=== PATIENT | female | born 1950 | race Caucasian/White ===

== ENCOUNTER 2018-12-18 10:17 | Inpatient (IN) | payer MEDICARE, BC ==
[~2018-12-18] VITALS: Ht 160 cm; Wt 47.2 kg
--- NOTE | 2018-12-18 10:24 | NUR ---
DR Prescott at the bedside for MSE.
--- NOTE | 2018-12-18 10:25 | NUR ---
Pt is unable to provide/recall complete information about her home medications at this time.
[2018-12-18] MEDS ORDERED: EFFEXOR (10:26)
[2018-12-18] MEDS ORDERED: XANAX (10:26)
[2018-12-18] MEDS ORDERED: IV NORMAL SALINE 500 ML BAG IV ONE ×2 (10:45→11:30)
[2018-12-18 10:56] LABS: BASOPHILS % (AUTO) 0.1 % (0.0-2.0); HEMATOCRIT 32.1 % (31.2-41.9); HEMOGLOBIN 10.5 g/dL (10.9-14.3); LYMPHOCYTES # (AUTO) 0.2 K/uL (20.0-40.0); LYMPHOCYTES % (AUTO) 3.1 % (20.5-51.5); MEAN CORPUSCULAR HGB CONC 33 g/dL (32.3-35.6); MEAN CORPUSCULAR VOLUME 85.3 fL (75.5-95.3); MONOCYTES % (AUTO) 0.4 % (0.0-11.0); NEUTROPHILS # (AUTO) 6.2 K/uL (1.8-8.9); NEUTROPHILS % (AUTO) 96.4 % (38.5-71.5); RED BLOOD CELL COUNT(AUTO) 3.76 MIL/uL (3.63-4.92); WHITE BLOOD COUNT (AUTO) 6.4 K/uL (3.8-11.8)
[2018-12-18 10:58] LABS: PLATELET COUNT (AUTO) 36 K/uL (179-408)
[2018-12-18 11:01] LABS: CREATININE 1.8 mg/dL (0.6-1.3); POTASSIUM 3.8 mmol/L (3.5-5.1)
--- NOTE | 2018-12-18 11:10 | NUR ---
Patient is resting comfortably in bed with eyes closed, family at the bedside.
[2018-12-18 11:13] LABS: BILIRUBIN,DIRECT 2.5 mg/dL (0.0-0.2); BILIRUBIN,TOTAL 3.2 mg/dL (0.2-1.0); TOTAL PROTEIN, SERUM 5.8 g/dL (6.4-8.2)
[2018-12-18 11:25] LABS: BAND % (MANUAL) 2 % (0-10); LYMPHOCYTES % (MANUAL) 3 % (20-40); MONOCYTES % (MANUAL) 1 % (2-10); NEUTROPHILS % (MANUAL) 94 % (42-75)
[2018-12-18 12:45] VITALS: BP 146/88
--- NOTE | 2018-12-18 12:45 | NUR ---
PATIENT ARRIVED TO UNIT FROM ER. PATIENT ON FITTER HELPER ST HR 120'S. O2SAT 95% ON 3L NC. PATIENT COMPLAINING OF SOB AND CHEST TIGHTNESS UPON ARRIVAL. PATIENT AOX4, COMPLAINS OF MOUTH PAIN DUE TO MULTIPLE MOUTH SORES IN MOUTH. PATIENT IS A HARD STICK FOR BLOOD AND IV AND THE PATIENT IS REQUESTING IF A PICC LINE CAN BE PLACED. NO ADMISSION ORDERS AT THIS TIME. WILL CONTACT CHONG JACKSON FOR FURTHER ORDERS.
[2018-12-18] MEDS ORDERED: NYST5ORA PO (13:27)
[2018-12-18 14:41] LABS: *BILIRUBIN,URIN NEGATIVE (NEGATIVE); *BLOOD, URINE 1+ (NEGATIVE); *COLOR,URINE YELLOW (YELLOW); *KETONES,URINE NEGATIVE (NEGATIVE); LEUKOCYTE ESTERASE ,URINE TRACE (NEGATIVE); NITRITE, URINE NEGATIVE (NEGATIVE); PH,URINE 6.5 (5.0-8.0); UGLUCOSE NEGATIVE (NEGATIVE)
[2018-12-18] MEDS ORDERED: ALBUTEROL SULFATE 2.5 MG/3 ML NEBU NEB PRN (15:15)
[2018-12-18 15:40] LABS: *CLARITY,URINE SLIGHTLY HAZY (CLEAR)
[2018-12-18 15:41] LABS: BACTERIA,URINE FEW /HPF (NONE SEEN)
[2018-12-18 15:42] LABS: COARSE GRANULAR CASTS,URINE 0-3 /LPF; MUCUS,URINE FEW /LPF (0-FEW); SQUAMOUS EPITHELIAL CELL,UR MODERATE /HPF (NONE SEEN)
[2018-12-18 15:58] VITALS: BP 126/81
[2018-12-18] MEDS: MORPHINE SULFATE 2 MG/1 ML DISP.SYRIN IV PRN (16:00)
[2018-12-18] MEDS ORDERED: ACETAMINOPHEN 650 MG SUPP.RECT RC PRN (16:15)
[2018-12-18] MEDS ORDERED: LEVALBUTEROL HCL NEB 0.63 MG/3 ML NEBU NEB PRN (17:30)
[2018-12-18] MEDS: PROTEIN SUPPLEMENT (PROSTAT) 30 ML LIQUID PO SCH ×2 (17:45→21:28)
--- NOTE | 2018-12-18 17:54 | NUR ---
PHARMACY CLINICAL NOTES: (VANCOMYCIN DOSING) S: 68 YO female with history of lung cancer. She claims she has been very short of breath has dyspnea at rest and has been unable to eat for the last 2 days. MD ordered Zosyn and Vancomycin per pharmacy O: BUN/SCR 44/1.8, WBC 6.4; TEMP 98.2, CRCL 22.18, DOSING WT 104 LBS; t1/2 ~30 hrs A/P: Will dose Vancomycin as 1 gm IVPB q48h ; estimated peak of 45 and trough of 15.Plan to order the Vancomycin level prior to 3rd dose(not ordered yet). Will continue to monitor the renal fxn and adjust the dose if necessary.
[2018-12-18] MEDS ORDERED: PIPERACILLIN/TAZOBACTAM/D5W 2.25 G in PREMIXED 1 EACH IV SCH (18:00)
[2018-12-18] MEDS: DRONABINOL 2.5 MG CAPSULE PO SCH (18:06)
[2018-12-18] MEDS: METOPROLOL TARTRATE 25 MG TABLET PO SCH ×2 (18:06→20:33)
[2018-12-18] MEDS: POTASSIUM CHLORIDE 20 MEQ in IV D5/ 0.9% NACL 1,000 ML IV PRN (18:49)
[2018-12-18] MEDS: NYSTATIN SUSPENSION 5 ML LIQUID UDC PO SCH ×2 (18:50→20:34)
[2018-12-18] MEDS ORDERED: VANCOMYCIN IV 200 ML IV SCH (19:00)
--- NOTE | 2018-12-18 19:13 | NUR ---
ADMISSION ORDERS HAVE BEEN RECEIVED. ADMISSION ASSESMENT COMPLETED WITH PATIENT. PATIENT IS COMPLIANT WITH ALL CARE. PAIN MEDICATION GIVEN ORDERED. PICC LINE WAS PLACED TO RIGHT UPPER ARM ORDERED. WILL GIVE REPORT TO ONCOMING NURSE
--- NOTE | 2018-12-18 19:20 | NUR ---
RECEIVED PT AWAKE, ALERT AND ORIENTEDX3. PT SHOWS NO SIGNS OF ACUTE DISTRESS. PT IV INTACT. PT ON 3L NASAL CANNULA. SAFETY AND COMFORT PROVIDED. WILL CONTINUE TO MONITOR,
[2018-12-18 19:31] VITALS: BP 125/77
[2018-12-18] MEDS: SUCRALFATE 1 G TABLET PO SCH (20:34)
[2018-12-18] MEDS ORDERED: LEVOFLOXACIN 500 MG TABLET PO SCH (21:00)
[2018-12-18] MEDS: LORAZEPAM 2 MG/1 ML VIAL IV PRN (23:06)
[2018-12-18] MEDS ORDERED: MEROPENEM 500 MG VIAL IV ONE (23:07)
[2018-12-18] MEDS: MEROPENEM 0.5 G in IV NORMAL SALINE 50 ML IV SCH (23:14)
[2018-12-18 23:49] VITALS: BP 137/75
[2018-12-19] VITALS (7 sets, daily range): BP systolic 104–145; BP diastolic 45–84
[2018-12-19] MEDS: DRONABINOL 2.5 MG CAPSULE PO SCH ×2 (05:55→16:50)
[2018-12-19] MEDS: PROTEIN SUPPLEMENT (PROSTAT) 30 ML LIQUID PO SCH ×3 (05:56→21:04)
[2018-12-19 05:59] LABS: EOSINOPHILS % (AUTO) 0.1 % (0.0-7.0); HEMATOCRIT 25.3 % (31.2-41.9); HEMOGLOBIN 8.4 g/dL (10.9-14.3); LYMPHOCYTES # (AUTO) 0.2 K/uL (20.0-40.0); LYMPHOCYTES % (AUTO) 4.9 % (20.5-51.5); MEAN CORPUSCULAR HEMOGLOBIN 28.1 uug (24.7-32.8); MEAN CORPUSCULAR HGB CONC 33 g/dL (32.3-35.6); MEAN CORPUSCULAR VOLUME 84.5 fL (75.5-95.3); MONOCYTES % (AUTO) 0.6 % (0.0-11.0); NEUTROPHILS # (AUTO) 4.2 K/uL (1.8-8.9); NEUTROPHILS % (AUTO) 94.4 % (38.5-71.5); RED BLOOD CELL COUNT(AUTO) 2.99 MIL/uL (3.63-4.92); WHITE BLOOD COUNT (AUTO) 4.4 K/uL (3.8-11.8)
[2018-12-19 06:19] LABS: BILIRUBIN,TOTAL 3.8 mg/dL (0.2-1.0); CREATININE 1.6 mg/dL (0.6-1.3); MAGNESIUM 1.5 mg/dL (1.8-2.4); PHOSPHOROUS 7.4 mg/dL (2.5-4.9); POTASSIUM 3.7 mmol/L (3.5-5.1); THYROID STIMULATING HORMONE 3.394 mIU/mL (0.358-3.740); TOTAL PROTEIN, SERUM 5.1 g/dL (6.4-8.2)
[2018-12-19 06:27] LABS: PLATELET COUNT (AUTO) 14 K/uL (179-408)
[2018-12-19] MEDS: SUCRALFATE 1 G TABLET PO SCH ×4 (06:52→20:45)
--- NOTE | 2018-12-19 07:00 | NUR ---
AT 0625 RECEIVED A CALL FROM LAB REGARDING CRITICAL LAB OF PT. NOTIFY DR BUS ASSISTANT REGARDING PLATELET COUNT OF 14 AND ALBUMIN AT 1.1 AT 0627H APRIL HANLEY ORDERED TO GIVE 1 UNIT PLATELETS AND RECHECK LEVEL POST TRANSFUSION.CHARGE NURSE AWARE. PT SIGNED THE CONSENT FORM. GAVE IT TO DAYSHIFT NURSE. PRESCRIBED MEDICATION GIVEN AND PT TOLERATED IT WELL. SAFETY AND COMFORT PROVIDED. WILL ENDORSE TO DAYSHIFT NURSE FOR CONTINUITY OF CARE.
--- NOTE | 2018-12-19 07:30 | NUR ---
RECIEVED PT LYING IN BED, APPEARS VERY WEAK AND C/O OF DRYNESS AROUND HER MOUTH. STILL NPO BUT CAN HAVE SMALL ICE CHIPS. NO N/V. HR IS ST IN THE 104B/MIN. MAIN IVF IS INFUSING WELL VIA THE PICC LINE. AFEBRILE. PT IS VERY FRAGILE BUT ABLE TO GET UP ON THE COMMODE.
[2018-12-19 07:57] LABS: BAND % (MANUAL) 1 % (0-10); EOSINOPHILS % (MANUAL) 1 % (0-8); LYMPHOCYTES % (MANUAL) 2 % (20-40); MONOCYTES % (MANUAL) 1 % (2-10); NEUTROPHILS % (MANUAL) 95 % (42-75)
--- NOTE | 2018-12-19 08:00 | NUR ---
SEEN AND EXAMINED BY DR RALPH WITH NEW ORDERS.
--- NOTE | 2018-12-19 09:00 | NUR ---
PT AMBULATED WITH PT SLOWLY WITH A WALKER. ABOUT A FEW FEET ONLY. PT IS EASILY SHORT OF BREATH WITH SLIGHT ACTIVITY. O2 ON 5LNC. LUNGS ARE CLEAR BUT MOSTLY DIMINISHED AT THE BASES.
--- NOTE | 2018-12-19 09:00 | NUR ---
CALLED UP THE LAB . PPLATELET IS STILL NOT AVAILABLE.
--- NOTE | 2018-12-19 09:30 | NUR ---
SEEN AND EXAMINED BY DR STANTON WITH NEW ORDERS.
[2018-12-19] MEDS: MAGNESIUM SULFATE/D5W 100 ML IV SCH ×2 (09:37→10:54)
[2018-12-19] MEDS: FAMOTIDINE. 20 MG/2 ML VIAL IV SCH (09:37)
[2018-12-19] MEDS: MEROPENEM 0.5 G in IV NORMAL SALINE 50 ML IV SCH ×2 (09:37→20:54)
[2018-12-19] MEDS: METOPROLOL TARTRATE 25 MG TABLET PO SCH ×2 (11:00→20:46)
[2018-12-19] MEDS: NYSTATIN SUSPENSION 5 ML LIQUID UDC PO SCH ×4 (11:01→20:45)
--- NOTE | 2018-12-19 12:33 | NUR ---
1 UNIT OF PLATELET TRANSFUSIN STARTED ORDERED. BLOOD TRANSFUSION CONSENT IS DONE. INFUSING WELL WITHOUT ANY SIGNS OF REACTION.
--- NOTE | 2018-12-19 13:30 | NUR ---
DUPLX SCAN DONE AT THE BEDSIDE AND US OF THE CHEST DONE AT THE BEDSIDE. PT TOLRATED WELL.
[2018-12-19] MEDS ORDERED: VENL150C2 PO (14:31)
[2018-12-19] MEDS ORDERED: ALPR0.25 PO (14:41)
--- NOTE | 2018-12-19 15:00 | NUR ---
2D ECHO DONE AT THE BEDSIDE.
--- NOTE | 2018-12-19 15:00 | NUR ---
PLATELET TRANSFUSION IS FINISHED. NO REACTION NOTED. VSS. PT ABLE TO SWALLOW MEDICATIONS WITHOUT ANY PROBLEM.
[2018-12-19] MEDS: POTASSIUM CHLORIDE 20 MEQ in IV D5/ 0.9% NACL 1,000 ML IV PRN (16:12)
--- NOTE | 2018-12-19 16:25 | NUR ---
PHARMACY CLINICAL NOTES: (VANCOMYCIN DOSING) S: 68 YO female with history of lung cancer. She claims she has been very short of breath has dyspnea at rest and has been unable to eat for the last 2 days. MD ordered Zosyn and Vancomycin per pharmacy O: BUN/SCR 51/1.6, WBC 4.4; TEMP 99.3, CRCL 22.18, DOSING WT 104 LBS; t1/2 ~30 hrs A/P: Will Continue Vancomycin as 1 gm IVPB q48h(first dose given last night at 2028) ; estimated peak of 45 and trough of 15.Plan to order the Vancomycin level prior to 3rd dose(not ordered yet). Will continue to monitor the renal fxn and adjust the dose if necessary.
[2018-12-19] MEDS ORDERED: METO50TA7 PO (17:51)
[2018-12-19] MEDS ORDERED: ONDA8TAB6 PO (17:52)
[2018-12-19] MEDS ORDERED: TRAZ-182 PO (17:55)
--- NOTE | 2018-12-19 19:20 | NUR ---
RECEIVED PT AWAKE, ALERT AND ORIENTEDX2. PT SHOWS NO SIGNS OF ACUTE DISTRESS.PT ON 2L NASAL CANNULA. PT IV INTACT. SAFETY AND COMFORT PROVIDED.WILL CONTINUE TO MONITOR. Addendum: 12/20/18 at 0234 by JUANY DELGADO RN PT IS ON 5L NASAL CANULA.
[2018-12-19] MEDS: DOXYCYCLINE HYCLATE 100 MG TABLET PO SCH (20:45)
[2018-12-19] MEDS: LEVOFLOXACIN 250 MG TABLET PO SCH (20:54)
[2018-12-20] VITALS (10 sets, daily range): BP systolic 114–150; BP diastolic 74–92
[2018-12-20] MEDS: TRAZODONE 50 MG TABLET PO PRN ×2 (00:16→22:23)
[2018-12-20] MEDS: DRONABINOL 2.5 MG CAPSULE PO SCH ×2 (06:05→16:52)
[2018-12-20] MEDS: PROTEIN SUPPLEMENT (PROSTAT) 30 ML LIQUID PO SCH ×3 (06:09→21:08)
[2018-12-20] MEDS: SUCRALFATE 1 G TABLET PO SCH ×4 (06:32→20:28)
--- NOTE | 2018-12-20 06:35 | NUR ---
PT SLEPT THROUGHOUT THE SHIFT . PT SHOWS NO SIGNS OF ACUTE DISTRESS. PRESCRIBED MEDICATION GIVEN AND PT TOLERATED IT WELL. SAFETY AND COMFORT PROVIDED. IV INTACT. PT SOMETIMES FORGETFUL AND NEED REORIENTATION. PT ON 5L NASAL CANNULA. ALL NEEDS ARE MET. WILL ENDORSE ACCORDINGLY TO INCOMING NURSE FOR CONTINUITY OF CARE.
[2018-12-20 08:38] LABS: ABG BASE EXCESS -2.3 mmol/L; ABG HCO3 21.4 mmol/L; ABG PCO2 32.4 mmHg (35.0-45.0); ABG PH 7.437 (7.350-7.450); ABG PO2 113.3 mmHg (75.0-100.0); ABG SITE RIGHT RADIAL; ABG TOTAL HEMOGLOBIN 9.8 G/dL (12.0-16.0); COHb 2.4 % (0.5-1.5); MetHb 0.3 % (0.0-1.5); O2Hb 95.6 % (94.0-97.0); VENT MODE Nasal Cannula
--- NOTE | 2018-12-20 09:00 | NUR ---
SEEN AND EXAMINED BY DR STANTON WITH NEW ORDERS. ABG ORDERED FOR THIS MORNING AND DONE. RESULT SEEN BY DR STANTON. PT STILL REMAINS WEAK, AND VERY SKINNY. COLOR IS PALE AND YELLOWISH. ORIENTED TO HER NAME AND PLACE. SLEEPING INTERMITTENTLY.
[2018-12-20] MEDS: POTASSIUM CHLORIDE 20 MEQ in IV D5/ 0.9% NACL 1,000 ML IV PRN (09:40)
[2018-12-20] MEDS: MEROPENEM 0.5 G in IV NORMAL SALINE 50 ML IV SCH ×2 (09:40→20:30)
[2018-12-20] MEDS: NYSTATIN SUSPENSION 5 ML LIQUID UDC PO SCH ×4 (09:40→20:30)
[2018-12-20] MEDS: DOXYCYCLINE HYCLATE 100 MG TABLET PO SCH ×2 (09:41→20:28)
[2018-12-20] MEDS: FAMOTIDINE. 20 MG/2 ML VIAL IV SCH (09:41)
[2018-12-20] MEDS: VENLAFAXINE XR 150 MG CAP.SR.24H PO SCH (09:41)
[2018-12-20] MEDS: METOPROLOL TARTRATE 25 MG TABLET PO SCH ×2 (10:35→20:29)
--- NOTE | 2018-12-20 12:12 | NUR ---
- Pt NPO at this time with some IV nutrition and Prostat TID, mostly refused. Recommend advancing diet as soon as medically feasible to supplement intake for severely malnourished patient. - Spoke with nurse to recommend swallow eval for diet advancement per pt report of readiness for soft and/or full liquid diet. Nurse entering order. - Noted severely low alb, altered electrolytes and renal labs. - Monitor PO intake, weight, labs, skin integrity, LBM/GI. Addendum: 12/20/18 at [address] Amended: Links added.
--- NOTE | 2018-12-20 12:30 | NUR ---
PT STARTED TO HAVE A NOSE BLEEDING BOTH NARES BUT MODERATE. ORDERED CBC AND BMP FOR THIS MORNING.
[2018-12-20 12:49] LABS: BASOPHILS % (AUTO) 0.1 % (0.0-2.0); EOSINOPHILS % (AUTO) 0.3 % (0.0-7.0); HEMATOCRIT 28.2 % (31.2-41.9); HEMOGLOBIN 9.1 g/dL (10.9-14.3); LYMPHOCYTES # (AUTO) 0.1 K/uL (20.0-40.0); LYMPHOCYTES % (AUTO) 7.5 % (20.5-51.5); MEAN CORPUSCULAR HEMOGLOBIN 27.3 uug (24.7-32.8); MEAN CORPUSCULAR HGB CONC 32 g/dL (32.3-35.6); MONOCYTES % (AUTO) 1.4 % (0.0-11.0); NEUTROPHILS # (AUTO) 1.4 K/uL (1.8-8.9); NEUTROPHILS % (AUTO) 90.7 % (38.5-71.5); RED BLOOD CELL COUNT(AUTO) 3.32 MIL/uL (3.63-4.92)
[2018-12-20 12:58] LABS: CREATININE 1.7 mg/dL (0.6-1.3); POTASSIUM 3.4 mmol/L (3.5-5.1)
[2018-12-20 13:00] LABS: MAGNESIUM 2.1 mg/dL (1.8-2.4); PHOSPHOROUS 4.8 mg/dL (2.5-4.9)
[2018-12-20 13:04] LABS: PLATELET COUNT (AUTO) 10 K/uL (179-408); WHITE BLOOD COUNT (AUTO) 1.9 K/uL (3.8-11.8)
--- NOTE | 2018-12-20 13:30 | NUR ---
NOTIFIED DR SCHWARZ WITH CRITICAL WBC AND PLATELETS RESULT. HE ORDERED 2 UNITS OF PLATELETS TRANSFUSION AND STILL WAITING.
[2018-12-20 13:31] LABS: LYMPHOCYTES % (MANUAL) 8 % (20-40); MONOCYTES % (MANUAL) 2 % (2-10); NEUTROPHILS % (MANUAL) 90 % (42-75)
[2018-12-20] MEDS ORDERED: FILGRASTIM 300 MCG/ML VIAL SUBCUT ONE (15:00)
--- NOTE | 2018-12-20 15:00 | NUR ---
PT DESIRES TO EAT AT THIS TIME. STILL ON CLEAR LIQUIDS. PT IS VERY ANXIOUS AND MEDICATED WITH XANAX 0.25MG AND ABLE TO COME DOWN.
[2018-12-20] MEDS: POTASSIUM CHLORIDE 50 ML IV SCH ×2 (15:27→16:19)
[2018-12-20] MEDS: ALPRAZOLAM 0.25 MG TABLET PO PRN (15:27)
[2018-12-20] MEDS ORDERED: TBO-FILGRASTIM 300 MCG/0.5 ML SYRINGE SQ ONE (15:30)
--- NOTE | 2018-12-20 17:40 | NUR ---
SEEN AND EXAMINED BY IVELISSE AND DR SCHWARZ. PT IS SCONTINOUSLY BLEEDING NASALLY AND ALSO BLOOD CLOTS SUCTIONED ON THE THROAT. NO APPARENT RESPIRATORY DISTRESS NOTED. PT IS BATHED AND CLEANED.
[2018-12-20] MEDS ORDERED: DESMOPRESSIN 0.1 MG TABLET PO STA (17:51)
--- NOTE | 2018-12-20 18:00 | NUR ---
SUCTIONED LARGE AMOUNT OF BLOOD CLOTS AROUND THE THROAT AND PT APPEARS TO BE HAVING SOB. RT AT THE BEDSIDE.
--- NOTE | 2018-12-20 18:20 | NUR ---
SEEN AND EXAMINED BY DR PERKINS WITH NEW ORDERS.
[2018-12-20] MEDS: FLUCONAZOLE 100 MG TABLET PO SCH (18:31)
[2018-12-20] MEDS: ACYCLOVIR 200 MG CAPSULE PO SCH (18:34)
--- NOTE | 2018-12-20 19:20 | NUR ---
RECEIVED PT ON BED. PT SHOWS NO SIGNS OF ACUTE DISTRESS. PT IV INTACT. SAFETY AND COMFORT PROVIDED. AWAITING FOR LAB FOR HER PLATELET TRANSFUSION. WILL CONTINUE TO MONITOR.
[2018-12-20] MEDS: LEVOFLOXACIN 250 MG TABLET PO SCH (20:30)
[2018-12-21] VITALS (13 sets, daily range): BP systolic 125–149; BP diastolic 68–104
[2018-12-21] MEDS: LORAZEPAM 2 MG/1 ML VIAL IV PRN (00:54)
--- NOTE | 2018-12-21 02:10 | NUR ---
GIVEN 2 UNITS OF PLATELET. NO SIDE EFFECT FOR THE PT. PT TOLERATED IT WELL. PT SECOND PLATELET TRANSFUSION TIME IS WITHIN TWO HOURS. BEGIN TIME WAS 0116H INSTEAD OF 0010 H BECAUSE IT ASK FOR VERIFY OVERRIDE,BUT IT WAS VERIFIED BY ONE OF THE RN AND THE BUTTON OF BEGIN CAN'T BE CLICK, SO I NEED TO DO VERIFY OVERRIDE WITH CHARGE NURSE TO BEGIN THE TRANSFUSION. PT STABLE. IN NO ACUTE DISTRESS. WILL CONTINUE TO MONITOR.
[2018-12-21] MEDS: DRONABINOL 2.5 MG CAPSULE PO SCH ×2 (05:46→16:45)
[2018-12-21] MEDS: PROTEIN SUPPLEMENT (PROSTAT) 30 ML LIQUID PO SCH ×3 (05:47→21:15)
[2018-12-21] MEDS: SUCRALFATE 1 G TABLET PO SCH ×4 (06:49→21:16)
--- NOTE | 2018-12-21 06:52 | NUR ---
PT SLEPT INTERMITTENTLY. PT SHOWS NO SIGNS OF ACUTE DISTRESS. PT ANXIOUS. TRYING TO GET OUT OF THE BED, TAKING OFF HER GOWN, NASAL CANNULA AND BLANKET. GIVEN ATIVAN. PT TOLERATED IT WELL. PRESCRIBED MEDICATION GIVEN AND PT TOLERATED IT WELL. SAFETY AND COMFORT. PROVIDED. ALL NEEDS ARE MET. WILL ENDORSE ACCORDINGLY TO INCOMING NURSE FOR CONTINUITY OF CARE.
[2018-12-21] MEDS: ACYCLOVIR 200 MG CAPSULE PO SCH ×2 (08:13→16:15)
[2018-12-21] MEDS: DOXYCYCLINE HYCLATE 100 MG TABLET PO SCH ×2 (08:13→21:16)
[2018-12-21] MEDS: METOPROLOL TARTRATE 25 MG TABLET PO SCH ×2 (08:13→21:16)
[2018-12-21] MEDS: FLUCONAZOLE 100 MG TABLET PO SCH (08:13)
[2018-12-21] MEDS: VENLAFAXINE XR 150 MG CAP.SR.24H PO SCH (08:14)
[2018-12-21] MEDS: NYSTATIN SUSPENSION 5 ML LIQUID UDC PO SCH ×4 (08:14→21:16)
[2018-12-21] MEDS: MEROPENEM 0.5 G in IV NORMAL SALINE 50 ML IV SCH (08:18)
[2018-12-21] MEDS: FAMOTIDINE. 20 MG/2 ML VIAL IV SCH (08:18)
[2018-12-21 08:26] LABS: LYMPHOCYTES # (AUTO) 0.1 K/uL (20.0-40.0); MEAN CORPUSCULAR HEMOGLOBIN 27.8 uug (24.7-32.8); MEAN CORPUSCULAR HGB CONC 33 g/dL (32.3-35.6); MEAN CORPUSCULAR VOLUME 84.1 fL (75.5-95.3); NEUTROPHILS # (AUTO) 0.8 K/uL (1.8-8.9)
[2018-12-21 08:30] LABS: NEUTROPHILS % (AUTO) 85.7 % (38.5-71.5); RED BLOOD CELL COUNT(AUTO) 2.28 MIL/uL (3.63-4.92)
[2018-12-21 08:31] LABS: BASOPHILS % (AUTO) 0.1 % (0.0-2.0); EOSINOPHILS % (AUTO) 0.2 % (0.0-7.0)
[2018-12-21 08:33] LABS: BILIRUBIN,TOTAL 7.1 mg/dL (0.2-1.0); CREATININE 1.7 mg/dL (0.6-1.3); MAGNESIUM 1.9 mg/dL (1.8-2.4); PHOSPHOROUS 5.8 mg/dL (2.5-4.9); POTASSIUM 3.5 mmol/L (3.5-5.1)
[2018-12-21 08:35] LABS: HEMATOCRIT 19.2 % (31.2-41.9); HEMOGLOBIN 6.4 g/dL (10.9-14.3); WHITE BLOOD COUNT (AUTO) 0.9 K/uL (3.8-11.8)
[2018-12-21 08:36] LABS: PLATELET COUNT (AUTO) 30 K/uL (179-408)
[2018-12-21] MEDS ORDERED: TBO-FILGRASTIM 480 MCG/0.8 ML SYRINGE SQ ONE (09:00)
--- NOTE | 2018-12-21 09:34 | NUR ---
pt pulled out the piccline made aware
[2018-12-21 11:30] LABS: LYMPHOCYTES % (MANUAL) 7 % (20-40); MONOCYTES % (MANUAL) 1 % (2-10); NEUTROPHILS % (MANUAL) 92 % (42-75)
--- NOTE | 2018-12-21 17:06 | NUR ---
GIVEN 1 UNITS OF PLATELET. NO SIDE EFFECT FOR THE PT. PT TOLERATED IT WELL
[2018-12-21] MEDS: POTASSIUM CHLORIDE 20 MEQ in IV D5/ 0.9% NACL 1,000 ML IV PRN (17:20)
[2018-12-21] MEDS ORDERED: FUROSEMIDE 20 MG/2 ML VIAL IV ONE (17:30)
--- NOTE | 2018-12-21 20:00 | NUR ---
RECEIVED PATIENT SLEEPING IN BED, RESTING COMFORTABLY WITH FAMILY AT SIDE. PATIENT IS ORIENTED X1-2, WITH NO COMPLAINTS OF PAIN OR DISCOMFORT AT THIS TIME. 1:1 SITTER AT SIDE. ALL SAFETY AND FALL PRECAUTION MEASURES ARE IN PLACE. CALL LIGHT AND PERSONAL ITEMS ARE WITHIN REACH AT ALL TIMES. WILL CONTINUE TO MONITOR.
[2018-12-21] MEDS: LEVOFLOXACIN 250 MG TABLET PO SCH (20:54)
[2018-12-21] MEDS: MORPHINE SULFATE 2 MG/1 ML DISP.SYRIN IV PRN (22:00)
[2018-12-22] VITALS (10 sets, daily range): BP systolic 143–168; BP diastolic 86–119
--- NOTE | 2018-12-22 02:15 | NUR ---
NOTIFIED BY HOUSE DECORATOR OF OPEN AREA ON PATIENTS SACRUM. PICTURE DOCUMENTATION MADE AND WOUND CONSULT ORDERED.
--- NOTE | 2018-12-22 04:33 | NUR ---
BEGAN BLOOD TRANSFUSION AT 75mL/HR.
--- NOTE | 2018-12-22 05:05 | NUR ---
PATIENT'S VS ARE WNL 30 MINUTES INTO TRANSFUSION AND THERE ARE NO ADVERSE EFFECTS NOTED OR OBSERVED. INCREASED INFUSION RATE TO 100mL/HR.
--- NOTE | 2018-12-22 05:45 | NUR ---
PATIENT IS TOLERATING TRANSFUSION WELL AT 100mL/HR. WILL CONTINUE TO MONITOR
[2018-12-22] MEDS: DRONABINOL 2.5 MG CAPSULE PO SCH ×2 (06:10→17:02)
[2018-12-22] MEDS: PROTEIN SUPPLEMENT (PROSTAT) 30 ML LIQUID PO SCH ×3 (06:12→21:09)
[2018-12-22] MEDS: SUCRALFATE 1 G TABLET PO SCH ×4 (06:33→20:07)
--- NOTE | 2018-12-22 06:54 | NUR ---
PATIENT IS RESTING IN BED WITH 1:1 SITTER AT BEDSIDE. PATIENT SLEPT INTERMITTENTLY THROUGHOUT NIGHT AND RECEIVED ALL PRESCRIBED MEDICATIONS ORDERED. PATIENT IS CURRENTLY RECEIVING A BLOOD TRANSFUSION WITH NO ADVERSE EFFECTS NOTED OR OBSERVED. ALL SAFETY AND FALL PRECAUTION MEASURES ARE IN PLACE. CALL LIGHT AND PERSONAL ITEMS ARE WITHIN REACH AT ALL TIMES.
--- NOTE | 2018-12-22 07:23 | NUR ---
BLOOD TRANSFUSION COMPLETED AND TOLERATED WELL BY PATIENT.
[2018-12-22 09:05] LABS: LYMPHOCYTES # (AUTO) 0.1 K/uL (20.0-40.0); LYMPHOCYTES % (AUTO) 26.3 % (20.5-51.5); MEAN CORPUSCULAR HEMOGLOBIN 28.1 uug (24.7-32.8); MEAN CORPUSCULAR HGB CONC 34 g/dL (32.3-35.6); MEAN CORPUSCULAR VOLUME 83.9 fL (75.5-95.3); MONOCYTES % (AUTO) 1.5 % (0.0-11.0); NEUTROPHILS # (AUTO) 0.4 K/uL (1.8-8.9); NEUTROPHILS % (AUTO) 72.2 % (38.5-71.5); RED BLOOD CELL COUNT(AUTO) 2.57 MIL/uL (3.63-4.92)
[2018-12-22] MEDS: FAMOTIDINE. 20 MG/2 ML VIAL IV SCH (09:11)
[2018-12-22] MEDS: ACYCLOVIR 200 MG CAPSULE PO SCH ×2 (09:11→17:02)
[2018-12-22] MEDS: NYSTATIN SUSPENSION 5 ML LIQUID UDC PO SCH ×3 (09:11→17:02)
[2018-12-22] MEDS: DOXYCYCLINE HYCLATE 100 MG TABLET PO SCH ×2 (09:11→20:07)
[2018-12-22] MEDS: VENLAFAXINE XR 150 MG CAP.SR.24H PO SCH (09:11)
[2018-12-22] MEDS: FLUCONAZOLE 100 MG TABLET PO SCH (09:11)
[2018-12-22] MEDS: METOPROLOL TARTRATE 25 MG TABLET PO SCH (09:12)
[2018-12-22 09:23] LABS: WHITE BLOOD COUNT (AUTO) 0.5 K/uL (3.8-11.8)
[2018-12-22 09:25] LABS: HEMOGLOBIN 7.2 g/dL (10.9-14.3)
--- NOTE | 2018-12-22 09:26 | NUR ---
Critical lab values received. Verbally notified Dr Vargas and stated will review chart. Will cont to monitor.
[2018-12-22 09:28] LABS: HEMATOCRIT 21.4 % (31.2-41.9)
[2018-12-22 09:29] LABS: PLATELET COUNT (AUTO) 15 K/uL (179-408)
[2018-12-22] MEDS ORDERED: FILGRASTIM 300 MCG/ML VIAL SUBCUT ONE (10:15)
[2018-12-22 10:41] LABS: BAND % (MANUAL) 1 % (0-10); LYMPHOCYTES % (MANUAL) 27 % (20-40); MONOCYTES % (MANUAL) 6 % (2-10); NEUTROPHILS % (MANUAL) 66 % (42-75)
[2018-12-22] MEDS: TBO-FILGRASTIM 300 MCG/0.5 ML SYRINGE SQ SCH (11:31)
--- NOTE | 2018-12-22 11:39 | NUR ---
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 RECOMMENDATIONS MADE FOR SKIN PROTECTION AND CARE. DISCUSSED WITH NURSING STAFF. PT ABLE TO ASSIST WITH TURNING AND REPOSITIONING IN BED. WILL SEE PRN. GALLEGOS AT BEDSIDE. IN AGREEMENT WITH PLAN OF CARE. Addendum: 12/22/18 at 1141 by KENYON FAIRBANKS RN Amended: Links added.
[2018-12-22] MEDS ORDERED: Z GUARD REMEDY PASTE 57 GM TUBE TOP PRN (11:45)
[2018-12-22] MEDS: ONDANSETRON 4 MG/2 ML VIAL IV PRN (13:34)
[2018-12-22] MEDS: Z GUARD REMEDY PASTE 57 GM TUBE TOP SCH ×2 (13:35→20:19)
--- NOTE | 2018-12-22 19:19 | NUR ---
RESTING COMFORTABLY. NO DISTRESS NOTED. SITTER AT BEDSIDE. WILL CONT TO MONITOR.
--- NOTE | 2018-12-22 19:30 | NUR ---
Patient alert, hob elevated, no sob no chest pain noted. cont on 1;1 sitter for safety. Patient on reverse isolation, friend at bedside. Patient cooperative with care at this time. R upper arm picc line patent, Patient seen by Dr Garcia changed order of nystatin. cont to monitor.
[2018-12-22] MEDS ORDERED: DOSING BY PHARMACY-MD TO SPECIFY MED/ROUTE XX PRN (20:00)
[2018-12-22] MEDS: LEVOFLOXACIN 250 MG TABLET PO SCH (20:06)
[2018-12-22] MEDS: METOPROLOL TARTRATE 50 MG TABLET PO SCH (20:07)
[2018-12-22] MEDS: MISCELLANEOUS MED PO SCH (21:09)
--- NOTE | 2018-12-22 21:30 | NUR ---
MOUTH WASH WITH LIDOCAINE; MAALOX; NYSTATIN 1;1;1 15ML SWISH & SWALLOW BEFORE EACH MEAL AND AT BEDTIME, GIVEN ORDERED.
[2018-12-23] VITALS (8 sets, daily range): BP systolic 120–150; BP diastolic 74–93
[2018-12-23] MEDS: MORPHINE SULFATE 2 MG/1 ML DISP.SYRIN IV PRN (04:19)
--- NOTE | 2018-12-23 05:08 | NUR ---
Patient alert but with confusion, no sob no chest pain, medicated for back pain with effective results. Patient continue on 1;1 sitter for safety pulling out tubes, picc lines. Patient on reverse isolation as ordered. Patient tolerate po medications. Patient needs maximum assist with adl's due to weakness. cont to monitor.
[2018-12-23] MEDS: DRONABINOL 2.5 MG CAPSULE PO SCH ×2 (06:20→16:54)
[2018-12-23] MEDS: PROTEIN SUPPLEMENT (PROSTAT) 30 ML LIQUID PO SCH ×3 (06:20→22:29)
[2018-12-23] MEDS: SUCRALFATE 1 G TABLET PO SCH ×4 (06:20→20:10)
[2018-12-23 07:19] LABS: BASOPHILS % (AUTO) 0.1 % (0.0-2.0); EOSINOPHILS % (AUTO) 0.2 % (0.0-7.0); LYMPHOCYTES # (AUTO) 0.2 K/uL (20.0-40.0); MEAN CORPUSCULAR HEMOGLOBIN 28.2 uug (24.7-32.8); MEAN CORPUSCULAR HGB CONC 34 g/dL (32.3-35.6); MEAN CORPUSCULAR VOLUME 83.9 fL (75.5-95.3); MONOCYTES % (AUTO) 1.1 % (0.0-11.0); NEUTROPHILS # (AUTO) 0.4 K/uL (1.8-8.9); NEUTROPHILS % (AUTO) 65.6 % (38.5-71.5)
[2018-12-23 07:21] LABS: CREATININE 1.6 mg/dL (0.6-1.3); MAGNESIUM 1.6 mg/dL (1.8-2.4); PHOSPHOROUS 5.6 mg/dL (2.5-4.9)
[2018-12-23 07:39] LABS: POTASSIUM 2.5 mmol/L (3.5-5.1)
[2018-12-23] MEDS: MISCELLANEOUS MED PO SCH ×4 (07:52→20:32)
[2018-12-23] MEDS: DOXYCYCLINE HYCLATE 100 MG TABLET PO SCH ×2 (08:06→20:10)
[2018-12-23] MEDS: VENLAFAXINE XR 150 MG CAP.SR.24H PO SCH (08:06)
[2018-12-23] MEDS: FLUCONAZOLE 100 MG TABLET PO SCH (08:06)
[2018-12-23] MEDS: FAMOTIDINE 20 MG TABLET PO SCH (08:06)
[2018-12-23] MEDS: ACYCLOVIR 200 MG CAPSULE PO SCH ×2 (08:07→16:25)
[2018-12-23] MEDS: METOPROLOL TARTRATE 50 MG TABLET PO SCH ×2 (08:07→20:10)
[2018-12-23 08:21] LABS: PLATELET COUNT (AUTO) 6 K/uL (179-408); WHITE BLOOD COUNT (AUTO) 0.6 K/uL (3.8-11.8)
[2018-12-23] MEDS: Z GUARD REMEDY PASTE 57 GM TUBE TOP SCH ×2 (08:26→20:11)
[2018-12-23 09:31] LABS: LYMPHOCYTES % (MANUAL) 33 % (20-40); MONOCYTES % (MANUAL) 1 % (2-10); NEUTROPHILS % (MANUAL) 66 % (42-75)
[2018-12-23] MEDS: TBO-FILGRASTIM 300 MCG/0.5 ML SYRINGE SQ SCH (10:23)
[2018-12-23] MEDS ORDERED: METOPROLOL TARTRATE 25 MG TABLET PO ONE (11:00)
[2018-12-23] MEDS ORDERED: POTASSIUM CHLORIDE 20 MEQ TAB.PRT.SR PO ONE (11:30)
[2018-12-23] MEDS ORDERED: MAGNESIUM OXIDE 400 MG TABLET PO ONE (12:00)
--- NOTE | 2018-12-23 12:33 | NUR ---
GIVEN 1 UNITS OF PLATELET. NO SIDE EFFECT FOR THE PT. PT TOLERATED IT WELL
[2018-12-23] MEDS: MAGNESIUM SULFATE/D5W 100 ML IV SCH ×2 (16:29→16:54)
[2018-12-23] MEDS: POTASSIUM CHLORIDE 50 ML IV SCH ×2 (16:59→17:25)
[2018-12-23] MEDS ORDERED: LIDOCAINE VISCUS 2% 15 ML UDC MM ONE (17:59)
[2018-12-23] MEDS ORDERED: MAG HYDROX/AL HYDROX/SIMETH 30 ML LIQUID UDC PO ONE (17:59)
[2018-12-23] MEDS ORDERED: NYSTATIN SUSPENSION 5 ML LIQUID UDC PO ONE (17:59)
--- NOTE | 2018-12-23 19:20 | NUR ---
RECEIVED PATIENT LYING IN BED. AAO3-4. IN NO ACUTE DISTRESS. DENIES ANY PAIN OR SOB. ON O2 AT 3LPM VIA NC IN PLACE. GENERALIZED JAUNDICED. PICC LINE ON RIGHT UPPER ARM INTACT AND PATENT. REVERSE ISOLATION PRECAUTION OBSERVED. SAFETY MEASURE INITIATED AND CALL MCCARTY WITHIN REACH.
[2018-12-23] MEDS: LEVOFLOXACIN 250 MG TABLET PO SCH (20:09)
[2018-12-24] VITALS (11 sets, daily range): BP systolic 105–140; BP diastolic 64–89
[2018-12-24] MEDS: DRONABINOL 2.5 MG CAPSULE PO SCH ×2 (05:41→18:24)
[2018-12-24] MEDS: PROTEIN SUPPLEMENT (PROSTAT) 30 ML LIQUID PO SCH ×3 (05:41→22:10)
[2018-12-24] MEDS: LORAZEPAM 2 MG/1 ML VIAL IV PRN (06:21)
--- NOTE | 2018-12-24 06:27 | NUR ---
ASLEEP MOST OF THE SHIFT. AOX2, WITH PERIODS OF CONFUSION. IN NO ACUTE DISTRESS. DENIES ANY FURTHER HEADACHE. DENIES ANY SOB. ON O2 AT 3LPM VIA NC IN PLACE. PERIOD OF ANXIETY THIS MORNING AND GIVEN ATIVAN 0.25ML IV PER ORDER. GENERALIZED JAUNDICED. PICC LINE ON RIGHT UPPER ARM INTACT AND PATENT. REVERSE ISOLATION PRECAUTION OBSERVED. NO ADVERSE REACTION NOTED FROM PO ABX. NPO STATUS THIS AM. FOR US OF ABDOMEN TODAY. SAFETY MEASURE MAINTAINED AND CALL MCCARTY WITHIN REACH.
[2018-12-24] MEDS: MISCELLANEOUS MED PO SCH ×4 (06:30→21:18)
[2018-12-24] MEDS: SUCRALFATE 1 G TABLET PO SCH ×4 (06:30→21:12)
[2018-12-24 06:34] LABS: EOSINOPHILS % (AUTO) 0.2 % (0.0-7.0); LYMPHOCYTES # (AUTO) 0.2 K/uL (20.0-40.0); LYMPHOCYTES % (AUTO) 24.5 % (20.5-51.5); MEAN CORPUSCULAR HEMOGLOBIN 28.2 uug (24.7-32.8); MEAN CORPUSCULAR HGB CONC 34 g/dL (32.3-35.6); MEAN CORPUSCULAR VOLUME 82.9 fL (75.5-95.3); MONOCYTES % (AUTO) 0.6 % (0.0-11.0); NEUTROPHILS # (AUTO) 0.5 K/uL (1.8-8.9); NEUTROPHILS % (AUTO) 74.7 % (38.5-71.5)
[2018-12-24 06:47] LABS: ALANINE AMINOTRANSFERASE 13 U/L (14-59); ALKALINE PHOSPHATASE 110 U/L (50-136); ASPARTATE AMINOTRANSFERASE 26 U/L (15-37); CARBON DIOXIDE 26 mmol/L (21-32); CHLORIDE 104 mmol/L (98-107); CREATININE 1.7 mg/dL (0.6-1.3); GLUCOSE 93 mg/dL (74-106); TOTAL PROTEIN, SERUM 4.6 g/dL (6.4-8.2); UREA NITROGEN, BLOOD 74 mg/dL (7-18)
[2018-12-24 07:03] LABS: RED BLOOD CELL COUNT(AUTO) 1.97 MIL/uL (3.63-4.92)
--- NOTE | 2018-12-24 07:05 | NUR ---
TELEPHONE CALL FROM LAB/[facility] AND REPORTED CRITICAL LAB RESULT FOLLOW: WBC 0.7, Hgb 5.6, Hct 16.3, PLATELET 11, POTASSIUM 2.8 AND ALBUMIN 1.1. REPORTED TO DAY SHIFT NURSE ISAAC AND INSTRUCTED TO CALL MD AND STATES UNDERSTANDING.
[2018-12-24 07:07] LABS: HEMATOCRIT 16.3 % (31.2-41.9); HEMOGLOBIN 5.6 g/dL (10.9-14.3); PLATELET COUNT (AUTO) 11 K/uL (179-408); POTASSIUM 2.8 mmol/L (3.5-5.1); WHITE BLOOD COUNT (AUTO) 0.7 K/uL (3.8-11.8)
[2018-12-24 07:28] LABS: LYMPHOCYTES % (MANUAL) 25 % (20-40); NEUTROPHILS % (MANUAL) 75 % (42-75)
--- NOTE | 2018-12-24 07:50 | NUR ---
Spoke with ANTIONETTE Card regarding critical lab values and stated will review chart and place orders accordingly. will continue to monitor.
[2018-12-24] MEDS: POTASSIUM CHLORIDE 50 ML IV SCH ×2 (09:10→10:18)
[2018-12-24] MEDS: DOXYCYCLINE HYCLATE 100 MG TABLET PO SCH ×2 (09:11→21:12)
[2018-12-24] MEDS: FAMOTIDINE 20 MG TABLET PO SCH (09:11)
[2018-12-24] MEDS: ACYCLOVIR 200 MG CAPSULE PO SCH ×2 (09:11→18:24)
[2018-12-24] MEDS: VENLAFAXINE XR 150 MG CAP.SR.24H PO SCH (09:11)
[2018-12-24] MEDS: FLUCONAZOLE 100 MG TABLET PO SCH (09:11)
[2018-12-24] MEDS: METOPROLOL TARTRATE 50 MG TABLET PO SCH ×2 (09:16→21:12)
[2018-12-24 10:04] LABS: BILIRUBIN,DIRECT 7.4 mg/dL (0.0-0.2); BILIRUBIN,TOTAL 8.7 mg/dL (0.2-1.0)
[2018-12-24] MEDS: Z GUARD REMEDY PASTE 57 GM TUBE TOP SCH ×2 (10:28→21:14)
[2018-12-24] MEDS: TBO-FILGRASTIM 300 MCG/0.5 ML SYRINGE SQ SCH (10:58)
--- NOTE | 2018-12-24 18:52 | NUR ---
1 unit Platelet and 1 unit PRBC transfused today and pt tolerated procedures well. Pt vomitted after giving zovirax and marinol. will administer zofran. Kept NPO as ordered. Planned MRCP in am at 9am at [facility], transportation arranged by Stephanie manager community outreach. Niece at bedside. BM x5 today, stool sent for OB and Cdiff. Incontinence care done. bed low and locked. call light within reached. will cont to monitor.
[2018-12-24 19:12] LABS: *OCCULT BLOOD STOOL POSITIVE (NEGATIVE)
--- NOTE | 2018-12-24 19:20 | NUR ---
RECEIVED PT ON BED. PT LETHARGIC. PT SHOWS NO SIGNS OF ACUTE DISTRESS. PT IV INTACT. SAFETY AND COMFORT PROVIDED. 1:1 SITTER FOR SAFETY. WILL CONTINUE TO MONITOR.
[2018-12-24] MEDS ORDERED: ACETAMINOPHEN 325 MG TABLET PO ONE (20:15)
[2018-12-24] MEDS ORDERED: diphenhydrAMINE 50 MG/1 ML VIAL IV ONE (20:15)
[2018-12-24 21:10] LABS: MEAN CORPUSCULAR HEMOGLOBIN 28.3 uug (24.7-32.8); MEAN CORPUSCULAR HGB CONC 33 g/dL (32.3-35.6); MEAN CORPUSCULAR VOLUME 85.6 fL (75.5-95.3); RED BLOOD CELL COUNT(AUTO) 2.57 MIL/uL (3.63-4.92)
[2018-12-24] MEDS: FAMOTIDINE. 20 MG/2 ML VIAL IV SCH (21:11)
[2018-12-24 21:14] LABS: PLATELET COUNT (AUTO) 22 K/uL (179-408); WHITE BLOOD COUNT (AUTO) 1.1 K/uL (3.8-11.8)
[2018-12-24 21:15] LABS: HEMOGLOBIN 7.3 g/dL (10.9-14.3)
[2018-12-24] MEDS: LEVOFLOXACIN 250 MG TABLET PO SCH (21:18)
--- NOTE | 2018-12-24 21:20 | NUR ---
ALIYA BOSS TACTICAL/MOBILE WATCH OFFICER AWARE OF THE NEW LAB RESULT OF THE PT . PER ALIYA BOSS TACTICAL/MOBILE WATCH OFFICER "PLATELET ORDERED BY DR. PERKINS NOT NECESSARY FOR PLATELET LEVEL IS 22." CHARGE NURSE AWARE. CODE STATUS OF THE PT IS DNR/DNI ORDERED BY ALIYA BOSS. PT SHOWS NO SIGNS OF ACUTE DISTRESS. VITAL SIGNS WITHIN NORMAL LIMIT.WILL CONTINUE TO MONITOR.
[2018-12-24] MEDS: TRAZODONE 50 MG TABLET PO PRN (22:23)
[2018-12-25] VITALS (14 sets, daily range): BP systolic 128–172; BP diastolic 79–92
[2018-12-25] MEDS: DRONABINOL 2.5 MG CAPSULE PO SCH ×2 (05:45→17:25)
[2018-12-25] MEDS: PROTEIN SUPPLEMENT (PROSTAT) 30 ML LIQUID PO SCH ×3 (06:00→21:34)
[2018-12-25 06:20] LABS: BASOPHILS % (AUTO) 0.1 % (0.0-2.0); EOSINOPHILS % (AUTO) 0.1 % (0.0-7.0); LYMPHOCYTES # (AUTO) 0.2 K/uL (20.0-40.0); LYMPHOCYTES % (AUTO) 16.4 % (20.5-51.5); MEAN CORPUSCULAR HEMOGLOBIN 28.4 uug (24.7-32.8); MEAN CORPUSCULAR HGB CONC 34 g/dL (32.3-35.6); MEAN CORPUSCULAR VOLUME 84.5 fL (75.5-95.3); MONOCYTES % (AUTO) 0.4 % (0.0-11.0)
--- NOTE | 2018-12-25 06:20 | NUR ---
ALL AM MEDICATION NON-ADMINISTERED BECAUSE IN PREPARATION FOR MRCP. NPO FOR PT.CHARGE NURSE AWARE. PT STABLE. SAFETY PROVIDED.
--- NOTE | 2018-12-25 06:29 | NUR ---
PT SLEPT INTERMITTENTLY. PT SHOWS NO SIGNS OF ACUTE DISTRESS. PT IV INTACT. SITTER AT BEDSIDE FOR SAFETY.PRESCRIBED MEDICATION GIVEN AND PT TOLERATED IT WELL. PT NEEDS REORIENTATION AND REDIRECTION. SAFETY AND COMFORT PROVIDED. ALL NEEDS ARE MET. WILL ENDORSE ACCORDINGLY TO INCOMING NURSE FOR CONTINUITY OF CARE.
[2018-12-25] MEDS: MISCELLANEOUS MED PO SCH (06:32)
[2018-12-25] MEDS: SUCRALFATE 1 G TABLET PO SCH ×4 (06:32→21:00)
[2018-12-25 06:44] LABS: CREATININE 1.6 mg/dL (0.6-1.3)
[2018-12-25 07:03] LABS: HEMATOCRIT 20.3 % (31.2-41.9); HEMOGLOBIN 6.8 g/dL (10.9-14.3); PLATELET COUNT (AUTO) 15 K/uL (179-408); WHITE BLOOD COUNT (AUTO) 1.2 K/uL (3.8-11.8)
[2018-12-25 07:28] LABS: LYMPHOCYTES % (MANUAL) 15 % (20-40); NEUTROPHILS % (MANUAL) 85 % (42-75)
--- NOTE | 2018-12-25 07:37 | NUR ---
CRITICAL LAB REPORTED TO STAFF ELECTRICAL ENGINEER. ALIYA BOSS NP ORDERED 1 UNIT PACK RBC AND 1 UNIT PLATELET FOR THE PT. CHARGE NURSE AWARE. PT SAFETY PROVIDED. ENDORSE TO DAYSHIFT NURSE.
--- NOTE | 2018-12-25 08:00 | NUR ---
Received patient, awake, alert x1-2. Confused and and would scream at times, denies any pain, on 3LPM tolerating well. Not in any form of distress. Kept on NPO for MRCP.
[2018-12-25] MEDS: FAMOTIDINE. 20 MG/2 ML VIAL IV SCH (08:30)
--- NOTE | 2018-12-25 08:55 | NUR ---
Verified NPO order with Siddharth/MANAGER CAFE, Siddharth/MANAGER CAFE said to hold medications for now.
[2018-12-25] MEDS: VENLAFAXINE XR 150 MG CAP.SR.24H PO SCH (09:00)
[2018-12-25] MEDS: METOPROLOL TARTRATE 50 MG TABLET PO SCH ×3 (09:00→20:21)
[2018-12-25] MEDS: ACYCLOVIR 200 MG CAPSULE PO SCH ×2 (09:00→17:25)
[2018-12-25] MEDS: DOXYCYCLINE HYCLATE 100 MG TABLET PO SCH ×2 (09:00→21:00)
[2018-12-25] MEDS: FLUCONAZOLE 100 MG TABLET PO SCH (09:00)
[2018-12-25] MEDS: Z GUARD REMEDY PASTE 57 GM TUBE TOP SCH ×2 (09:05→20:22)
--- NOTE | 2018-12-25 09:05 | NUR ---
Went for MRCP, accompanied by EMT vital signs WNL. No SOB at 95% on 3LPM per NC.
--- NOTE | 2018-12-25 10:58 | NUR ---
Bach from procedure, according to EMT, patient tolerated poorly and was moving alot.n Informed Dr Messina and said may resume previous diet.
[2018-12-25] MEDS ORDERED: POTASSIUM CHLORIDE 20 MEQ POWDER PACKET PO ONE (11:30)
--- NOTE | 2018-12-25 11:30 | NUR ---
One unit RBC of A negative blood with wrist band number [id number], unit number [id number] started.
[2018-12-25] MEDS: TBO-FILGRASTIM 300 MCG/0.5 ML SYRINGE SQ SCH (12:20)
[2018-12-25] MEDS: MAG HYDROX PO SCH ×9 (12:21→21:00)
[2018-12-25] MEDS: SIMETH PO SCH ×9 (12:21→21:00)
[2018-12-25] MEDS: AL HYDROX PO SCH ×9 (12:21→21:00)
[2018-12-25] MEDS: LIDOCAINE VISCUS PO SCH ×9 (12:21→21:00)
[2018-12-25] MEDS: NYSTATIN PO SCH ×9 (12:21→21:00)
--- NOTE | 2018-12-25 12:41 | NUR ---
Dr Messina said to have patient on NPO still for further surgical evaluation.
[2018-12-25] MEDS ORDERED: methylPREDNISolone SOD SUCC 125 MG/2 ML VIAL IV ONE (12:45)
[2018-12-25] MEDS: POTASSIUM CHLORIDE 50 ML IV SCH ×4 (13:29→17:26)
--- NOTE | 2018-12-25 14:00 | NUR ---
Dr Messina said OK to resume on previous diet. Midline inserted over left upper arm, for multiple infusions. Second lumen on PICC line also made patent.
[2018-12-25] MEDS ORDERED: hydrALAZINE HCL 20 MG/1 ML VIAL IV PRN (14:15)
--- NOTE | 2018-12-25 14:23 | NUR ---
One unit RBC given and completed patient not in any distress. No itching, afebrile, no SOB or chest pains.
[2018-12-25] MEDS: ALPRAZOLAM 0.25 MG TABLET PO PRN (17:25)
--- NOTE | 2018-12-25 19:12 | NUR ---
Completed one unit of platelet, not in any form of distress. Tolerated well, afebrile no SOB or chest pains noted.
--- NOTE | 2018-12-25 19:45 | NUR ---
RECEIVED PATIENT AWAKE IN BED. ALERT TO SELF, CONFUSED AND DISORIENTED, OFF AND ON. NEEDS FREQUENT REDIRECTION. FAMILY AT BEDSIDE. NO S/S OF PAIN OR DISCOMFORT. NO FACIAL GRIMACE NOTED. PATIENT DENIES WHEN ASKED. NO RESP. DISTRESS NOTED. ON O2 3L NC SATING WELL. ON TELE SR 80'S. PICC LINE NOTED TO RIGHT UPPER ARM AND MID-LINE NOTED TO LEFT UPPER ARM. BOTH INTACT, COVERED BY ALLEY CLEANER. BP ELEVATED, ALL OTHER VS WNL. AFEBRILE. BED ALARM ON. 1:1 SITTER AT BEDSIDE. ALL NEEDS ATTENDED. WILL CONTINUE TO MONITOR AND ASSESS.
[2018-12-25] MEDS: ONDANSETRON 4 MG/2 ML VIAL IV PRN (20:07)
--- NOTE | 2018-12-25 20:21 | NUR ---
BP 165/92. ALL OTHER VSS. PATIENT GIVEN ROUTINE LOPRESSOR 50MG ORDERED. PATIENT ABLE TO TAKE WITH APPLESAUCE. NO ASPIRATION NOTED. HOB ELEVATED. WILL CONTINUE TO MONITOR AND ASSESS.
--- NOTE | 2018-12-25 20:35 | NUR ---
PATIENT ASLEEP. PATIENT WAS GIVEN XANAX ON DAYSHIFT AT 1725 PER EMAR NOTES. EASILY AROUSABLE BUT QUICKLY FALLS BACK ASLEEP. NO RESP. DISTRESS NOTED. SITTER AT BEDSIDE. WILL CONTINUE TO CLOSELY MONITOR AND ASSESS. ALL NEEDS ATTENDED. BED ALARM ON.
[2018-12-25] MEDS: LEVOFLOXACIN 250 MG TABLET PO SCH (21:33)
--- NOTE | 2018-12-25 21:34 | NUR ---
PATIENT ASLEEP IN BED. CONTINUED ON O2. AROUSABLE BUT QUICKLY FALLS BACK ASLEEP. UNABLE TO TAKE MEDS AT THIS TIME. REPOSITIONED TO SIDE FOR COMFORT/PRESSURE RELIEF. RECHECKED PATIENTS BLOOD PRESSURE, SLOWLY TRENDING DOWN. WILL CONTINUE TO MONITOR AND ASSESS.
--- NOTE | 2018-12-25 21:36 | NUR ---
RECEIVED CALL FROM OUTSIDE RADIOLOGY.RELAY TESTER. HIDA SCAN ORDERED TO BE DONE TONIGHT. IT WAS REPORTED DURING SHIFT CHANGE REPORT THAT PATIENT DID EAT DINNER. REPORTED TO RADIOLOGICAL HEALTH SPECIALIST THAT PATIENT ATE DINNER. PER TECH, LONG PATIENT HAS BEEN NPO FOR OVER 4 HOURS, OK TO DO TEST. TECH STATED SHE WOULD BE HERE IN A FEW HOURS TO PERFORM TEST. DIRECTOR OF CLINICAL SERVICES NOTIFIED. WILL CONTINUE TO MONITOR AND ASSESS.
[2018-12-26] VITALS (8 sets, daily range): BP systolic 113–153; BP diastolic 69–87
--- NOTE | 2018-12-26 | NUR ---
PATIENT ASLEEP IN BED. REGISTRY GENERAL SURGERY PHYSICIAN ASSISTANT. STATING THAT HIDA SCAN IS "STAT." REVIEWED ORDER WITH COTTON FARMER. ORDER NOTED ROUTINE. INFORMED TECH THAT PATIENT ATE DINNER AND IT WAS REPORTED IN SHIFT CHANGE THAT PATIENT WILL HAVE TEST DONE IN AM AND TO KEEP PATIENT NPO AFTER MIDNIGHT FOR PROCEDURE. RN NURSING TRANSPORT ANALYST NOTIFIED. ALL NEEDS ATTENDED.
--- NOTE | 2018-12-26 01:02 | NUR ---
PATIENT REPOSITIONED. KEPT NPO ORDERED FOR HIDA SCAN IN AM. RECEIVED CALL FROM IN-HOUSE RADIOLOGY TO INFORM THAT REGISTRY TECH WILL BE BACK IN AM FOR ORDERED "ROUTINE TEST." ALL NEEDS ATTENDED. WILL CONTINUE TO MONITOR AND ASSESS.
[2018-12-26] MEDS: LORAZEPAM 2 MG/1 ML VIAL IV PRN ×2 (01:21→10:49)
--- NOTE | 2018-12-26 01:32 | NUR ---
PATIENT AWAKE IN BED. VERY RESTLESS. TOSSING AND TURNING ALL OVER BED. PATIENT GIVEN ATIVAN 0.25MG IV PER SHOE ASSOCIATE. REPOSITIONED TO SIDE.VS WNL. ALL NEEDS ATTENDED.
--- NOTE | 2018-12-26 02:00 | NUR ---
PATIENT ASLEEP IN BED. CONTINUED ON O2. NO RESP. DISTRESS NOTED. RESTING WELL. ALL NEEDS ATTENDED. WILL CONTINUE TO MONITOR AND ASSESS.
[2018-12-26] MEDS: DRONABINOL 2.5 MG CAPSULE PO SCH ×2 (05:22→17:37)
[2018-12-26] MEDS: PROTEIN SUPPLEMENT (PROSTAT) 30 ML LIQUID PO SCH ×2 (05:22→13:38)
--- NOTE | 2018-12-26 05:23 | NUR ---
PATIENT KEPT NPO SINCE MIDNIGHT FOR HIDA SCAN THIS AM. VERY RESTLESS. PATIENT REPOSITIONED TO SIDE EVERY 2 HOURS FOR PRESSURE RELIEF. ALL NEEDS ATTENDED. WILL CONTINUE TO MONITOR AND ASSESS.
[2018-12-26] MEDS ORDERED: ALTEPLASE 2 MG VIAL XX ONE (06:00)
--- NOTE | 2018-12-26 06:35 | NUR ---
PATIENT ASLEEP. VSS. ON TELE SR. BED ALARM ON. ALL NEEDS ATTENDED. WILL CONTINUE TO MONITOR AND ASSESS.
[2018-12-26] MEDS ORDERED: FAMOTIDINE. 20 MG/2 ML VIAL IV SCH (09:00)
[2018-12-26 09:07] LABS: BILIRUBIN,TOTAL 5.9 mg/dL (0.2-1.0); CREATININE 1.8 mg/dL (0.6-1.3); MAGNESIUM 2.1 mg/dL (1.8-2.4); PHOSPHOROUS 6.8 mg/dL (2.5-4.9); POTASSIUM 4.4 mmol/L (3.5-5.1); TOTAL PROTEIN, SERUM 5.4 g/dL (6.4-8.2)
[2018-12-26 09:14] LABS: LYMPHOCYTES # (AUTO) 0.3 K/uL (20.0-40.0); MEAN CORPUSCULAR HEMOGLOBIN 28.6 uug (24.7-32.8); NEUTROPHILS # (AUTO) 2.4 K/uL (1.8-8.9)
[2018-12-26] MEDS ORDERED: HEPARIN SODIUM,PORCINE/PF 50 UNIT/5 ML SYR IV PRN ×3 (09:15)
--- NOTE | 2018-12-26 09:32 | NUR ---
ADELIA Card made aware of patient's critical labs of BUN 93 and Albumin 1.2, no new orders.
[2018-12-26 09:36] LABS: BASOPHILS % (AUTO) 0.2 % (0.0-2.0); LYMPHOCYTES % (AUTO) 11.4 % (20.5-51.5); MEAN CORPUSCULAR HGB CONC 34 g/dL (32.3-35.6); MEAN CORPUSCULAR VOLUME 85.3 fL (75.5-95.3); MONOCYTES % (AUTO) 0.8 % (0.0-11.0); NEUTROPHILS % (AUTO) 87.6 % (38.5-71.5); RED BLOOD CELL COUNT(AUTO) 3.62 MIL/uL (3.63-4.92)
[2018-12-26 09:38] LABS: WHITE BLOOD COUNT (AUTO) 2.7 K/uL (3.8-11.8)
[2018-12-26 09:39] LABS: HEMATOCRIT 30.8 % (31.2-41.9); HEMOGLOBIN 10.4 g/dL (10.9-14.3)
[2018-12-26 09:40] LABS: PLATELET COUNT (AUTO) 14 K/uL (179-408)
[2018-12-26] MEDS ORDERED: HEPARIN SODIUM,PORCINE/PF 100 UNIT/ML, 5ML SYR XX PRN (09:45)
[2018-12-26] MEDS: VENLAFAXINE XR 150 MG CAP.SR.24H PO SCH (10:00)
[2018-12-26] MEDS: METOPROLOL TARTRATE 50 MG TABLET PO SCH (10:00)
[2018-12-26] MEDS: AL HYDROX PO SCH ×9 (10:00→15:50)
[2018-12-26] MEDS: SIMETH PO SCH ×9 (10:00→15:50)
[2018-12-26] MEDS: TBO-FILGRASTIM 300 MCG/0.5 ML SYRINGE SQ SCH ×2 (10:00→11:15)
[2018-12-26] MEDS: ACYCLOVIR 200 MG CAPSULE PO SCH ×2 (10:00→16:02)
[2018-12-26] MEDS: LIDOCAINE VISCUS PO SCH ×9 (10:00→15:50)
[2018-12-26] MEDS: FLUCONAZOLE 100 MG TABLET PO SCH (10:00)
[2018-12-26] MEDS: DOXYCYCLINE HYCLATE 100 MG TABLET PO SCH (10:00)
[2018-12-26] MEDS: MAG HYDROX PO SCH ×9 (10:00→15:50)
[2018-12-26] MEDS: SUCRALFATE 1 G TABLET PO SCH ×3 (10:00→15:50)
[2018-12-26] MEDS: NYSTATIN PO SCH ×9 (10:00→15:50)
[2018-12-26] MEDS: Z GUARD REMEDY PASTE 57 GM TUBE TOP SCH (10:06)
--- NOTE | 2018-12-26 10:07 | NUR ---
Patient lethargic this morning, not following commands. Unsafe medication administration PO. Held PO medications this morning. ADELIA Card made aware.
[2018-12-26 10:10] LABS: BAND % (MANUAL) 4 % (0-10); LYMPHOCYTES % (MANUAL) 10 % (20-40); MONOCYTES % (MANUAL) 2 % (2-10); NEUTROPHILS % (MANUAL) 83 % (42-75)
--- NOTE | 2018-12-26 10:37 | NUR ---
Per pharmacistrd to give past discontinued time. Will flush double lumen picc and midline with heparin, lines occluded. Addendum: 12/26/18 at 1046 by CHATO CURRAN RN one heparin lock used to flush all 3 lines patent now
--- NOTE | 2018-12-26 11:47 | NUR ---
Held PO 1130 medications, patient lethargic. unsafe to swallow PO.
[2018-12-26 12:04] LABS: ABG BASE EXCESS -0.3 mmol/L; ABG HCO3 22.6 mmol/L; ABG PH 7.481 (7.350-7.450); ABG SITE RIGHT RADIAL; ABG TOTAL HEMOGLOBIN 10.1 G/dL (12.0-16.0); COHb 1.8 % (0.5-1.5); MetHb 0.1 % (0.0-1.5); O2Hb 94.8 % (94.0-97.0); VENT MODE Nasal Cannula
[2018-12-26] MEDS: MORPHINE SULFATE 2 MG/1 ML DISP.SYRIN IV PRN (12:59)
[2018-12-26] MEDS ORDERED: MORPHINE SULFATE 2 MG/1 ML DISP.SYRIN IV PRN (17:30)
[2018-12-26] MEDS ORDERED: LORAZEPAM 2 MG/1 ML VIAL IV PRN (17:30)
--- NOTE | 2018-12-26 19:03 | NUR ---
Patient resting in bed, sitter at bedside for safety. No distress noted. Ativan given PRN and morphine given PRN for comfort. Patient now on comfort care, hospice eval done today. Telemetry discontinued. 1 unit of platelets given today. ABG done today, chest xray scheduled for tomorrow. CT of the head done today. Will endorse care to oncoming shift.
== END 2018-12-26 19:49 | disposition hospice, inpatient (51) | DRG 871 ==
LOC: ER 10:17 → TELE3 12:06 → MEDSURG3 12-20 11:24 → TELE3 12-24 09:22 → MEDSURG3 12-25 11:28 → TELE3 12-25 17:00 → MEDSURG3 12-26 18:49
PROVIDERS: ADMIT Internal Medicine; ATTEND Internal Medicine
PROC: 02HV33Z Insertion of Infusion Device into Superior Vena Cava, Percutaneous Approach (ICD-10-PCS; 2018-12-18)
PROC: 30233R1 Transfusion of Nonautologous Platelets into Peripheral Vein, Percutaneous Approach (ICD-10-PCS; principal; 2018-12-19)
PROC: 30233N1 Transfusion of Nonautologous Red Blood Cells into Peripheral Vein, Percutaneous Approach (ICD-10-PCS; 2018-12-22)
PROC: 30233N1 Transfusion of Nonautologous Red Blood Cells into Peripheral Vein, Percutaneous Approach (ICD-10-PCS; 2018-12-22)
DX: A41.9 Sepsis, unspecified organism (principal); J18.9 Pneumonia, unspecified organism; E43 Unspecified severe protein-calorie malnutrition; J96.21 Acute and chronic respiratory failure with hypoxia; N17.0 Acute kidney failure with tubular necrosis; D61.810 Antineoplastic chemotherapy induced pancytopenia; I50.23 Acute on chronic systolic (congestive) heart failure; K83.1 Obstruction of bile duct; Z68.1 Body mass index [BMI] 19.9 or less, adult; C34.90 Malignant neoplasm of unspecified part of unspecified bronchus or lung; D68.59 Other primary thrombophilia; C80.0 Disseminated malignant neoplasm, unspecified; C79.9 Secondary malignant neoplasm of unspecified site; B37.81 Candidal esophagitis; E87.1 Hypo-osmolality and hyponatremia; E87.2 Acidosis; F33.1 Major depressive disorder, recurrent, moderate; J44.0 Chronic obstructive pulmonary disease with (acute) lower respiratory infection; K92.2 Gastrointestinal hemorrhage, unspecified; R64 Cachexia; N39.0 Urinary tract infection, site not specified; J91.0 Malignant pleural effusion; Z66 Do not resuscitate; Z51.5 Encounter for palliative care; Z95.5 Presence of coronary angioplasty implant and graft; E87.6 Hypokalemia; I25.10 Atherosclerotic heart disease of native coronary artery without angina pectoris; Z74.09 Other reduced mobility; I25.2 Old myocardial infarction; I25.5 Ischemic cardiomyopathy; I11.0 Hypertensive heart disease with heart failure; R62.7 Adult failure to thrive; T45.1X5A Adverse effect of antineoplastic and immunosuppressive drugs, initial encounter; Y92.89 Other specified places as the place of occurrence of the external cause; E83.42 Hypomagnesemia; E86.9 Volume depletion, unspecified; F41.9 Anxiety disorder, unspecified; I67.2 Cerebral atherosclerosis; I70.0 Atherosclerosis of aorta; Z87.891 Personal history of nicotine dependence; K82.8 Other specified diseases of gallbladder; Z99.81 Dependence on supplemental oxygen
CPT/HCPCS: 36415; 36600; 70030-TC; 70450; 71045; 74181; 76604; 76700; 83550; 83605; 83615; 83735; 84100; 84443; 85014; 85025; 85730; 86850; 86900; 86901; 86920; 87040; 87086; 92526; 92610; 93005; 93307; 94664; 97116; 97530; A4663; C1751; G0378; J0360; J1442; J1447; J1642; J1940; J2060; J2185; J2270; J2405; J2543; J2930; J2997; J3370; J3475; J3480; J3490; J7030; J7040; J7042; J7050; P9016-BL; P9021; P9035-BL; Q0167

== ENCOUNTER 2018-12-26 19:20 | Inpatient (IN) | payer OTHER ==
[~2018-12-26 19:20] MED LIST: ALPR0.25 PO; METO50TA7 PO; NYST5ORA PO; ONDA8TAB6 PO; TRAZ-182 PO; VENL150C2 PO
[2018-12-26] MEDS ORDERED: SCOPOLAMINE HYDROBROMIDE 1.5 MG PATCH TD PRN (20:00)
[2018-12-26] MEDS: LORAZEPAM 2 MG/1 ML VIAL IV PRN (21:08)
[2018-12-27] MEDS: MORPHINE SULFATE 2 MG/1 ML DISP.SYRIN IV PRN ×8 (00:18→23:29)
[2018-12-27 04:00] VITALS: BP 121/80
[2018-12-27] MEDS: LORAZEPAM 2 MG/1 ML VIAL IV PRN ×8 (04:00→23:28)
--- NOTE | 2018-12-27 06:50 | NUR ---
patient slept intermittently during the shift, required ativan and morphine for non-verbal pain and severe agitation. Sitter was at bedside, comfort and safety measures were in place. Patient is confused, non-verbal, frequently agitated. PICC and midline were flushed every 2 hours.
--- NOTE | 2018-12-27 07:15 | NUR ---
PATIENT LAYING IN BED, NO DISTRESS NOTED. SITTER AT BEDSIDE. BED IN LOWEST POSITION, SIDE RAILS UP X2. WILL CONTINUE TO MONITOR.
[2018-12-27 16:00] VITALS: BP 148/75
--- NOTE | 2018-12-27 18:00 | NUR ---
PATIENT RESTING INTERMITTENTLY, RESTLESS AT TIMES. MORPHINE AND ATIVAN GIVEN Q2HRS FOR COMFORT MEASURES. BED IN LOWEST POSITION, SIDE RAILS UP X2, SITTER AT BEDSIDE. SAFETY AND COMFORT MEASURES PROVIDED THROUGHOUT SHIFT.
[2018-12-28] MEDS: LORAZEPAM 2 MG/1 ML VIAL IV PRN ×8 (02:14→21:49)
[2018-12-28] MEDS: MORPHINE SULFATE 2 MG/1 ML DISP.SYRIN IV PRN ×9 (02:15→22:09)
--- NOTE | 2018-12-28 06:51 | NUR ---
Patient rested very well in between care; comfort care continued; ativan and morphine given IVP for comfort;
[2018-12-28] MEDS ORDERED: ACETAMINOPHEN 650 MG SUPP.RECT RC PRN (11:45)
--- NOTE | 2018-12-28 18:40 | NUR ---
PATIENT IN HOSPICE CARE, COMFORT MEASURES ONLY, PROVIDE COMFORT AT ALL TIMES, SAFETY PROVIDED AT ALL TIMES.
--- NOTE | 2018-12-28 19:30 | NUR ---
Patient is resting in bed. Comfort measures only. Safety measures initiated. Will continue to monitor. PRN morphine and Ativan for comfort.
[2018-12-29] MEDS: LORAZEPAM 2 MG/1 ML VIAL IV PRN ×9 (01:12→23:05)
[2018-12-29] MEDS: MORPHINE SULFATE 2 MG/1 ML DISP.SYRIN IV PRN ×9 (01:25→23:05)
--- NOTE | 2018-12-29 07:35 | NUR ---
patient is sleeping in bed comfortably, continue with comfort care
--- NOTE | 2018-12-29 09:45 | NUR ---
PATIENT IS SLEEPING COMFORTABLY, NO SIGNS AND SYMPTOMS OF PAIN NOTED, MORPHINE AND ATIVAN IS BEING ADMINISTERED EVERY 2 HOURS FOR COMFORT CARE, O2 2 LITER IS FLOWING CONTINUOUSLY FOR COMFORT, REPOSITIONED EVERY 2 HOURS, GOOD PERINEAL AND ORAL CARE PROVIDED, CONTINUE WITH COMFORT CARE.
--- NOTE | 2018-12-29 16:45 | NUR ---
patient is laying in bed, asleep comfortably, morphine and ativan is being administered around the clock for comfort care, no signs and symptoms of pain noted, repositioned every 2 hours to relieve the pressure, good oral and perineal care provided, patient's daughter was bedside, continue with comfort care
--- NOTE | 2018-12-29 18:42 | NUR ---
PATIENT IS IN SLEEP, COMFORTABLY, NO SIGNS AND SYMPTOMS OF PAIN NOTED, REPOSITIONED AND GOOD ORAL CARE AND PERINEAL CARE GIVEN
--- NOTE | 2018-12-29 19:20 | NUR ---
Received patient lying in bed. Family member at bedside. Patient appears calm and comfortable. In no acute distress. O2 at 2LPM via NC in place for comfort. Patient mouth breathing with periods of apnea lasting 10 seconds. RR at 6/min. Generalized jaundice and with multiple discoloration on both UE and LE and upper body. Radial pulses faint. Pedal pulses not palpable. Midline on left upper arm intact and patent. PICC line on right upper arm with 2 lumen intact. Reposition for comfort. Kept comfortable. Continue to monitor.
[2018-12-30] MEDS: MORPHINE SULFATE 2 MG/1 ML DISP.SYRIN IV PRN ×8 (01:15→20:45)
[2018-12-30] MEDS: LORAZEPAM 2 MG/1 ML VIAL IV PRN ×6 (04:57→18:04)
--- NOTE | 2018-12-30 06:07 | NUR ---
Patient appears calm and comfortable at this time. In no acute distress. O2 at 2LPM via NC in place for comfort. Patient mouth breathing, using accessory muscle to breath with periods of apnea lasting 8-10 seconds. RR at 6/min. Generalized jaundice and with multiple discoloration on both UE and LE and upper body. Radial pulses faint. Pedal pulses not palpable. Midline on left upper arm intact and patent. PICC line on right upper arm with 2 lumen intact. Ativan 0.5mg IV PRN and Morphine 2mg IV PRN given for comfort. Reposition for comfort. Oral care provided. Kept comfortable. Continue to monitor.
--- NOTE | 2018-12-30 07:15 | NUR ---
RECEIVED PATIENT ON BED, NON ALERT, ON COMFORT MEASURES ONLY. PROGRESSIVELY DECLINING. ALSO UNDER [facility]OS[facility].
[2018-12-30 12:00] VITALS: BP 71/39
--- NOTE | 2018-12-30 14:41 | NUR ---
SS consultation requested. SW arrived to patient's room at 2:20pm today, and patient's friend/roommate David was present. Patient appeared to be resting comfortably in her bed, eyes closed. David was receptive to speaking with this SW. SW checked in with David to see how he was coping and offered supportive services to David. David stated that he has known patient for 19 years and has supported her with her medical condition, and stated that he was doing "fine" right now knowing that she is not in pain. LOUIE then asked if patient's niece was planning on coming by today, and David stated that patient's niece should be in later this afternoon. LOUIE stated that she will check in with patient's niece later on today, and David expressed agreement. SW to follow-up.
--- NOTE | 2018-12-30 16:38 | NUR ---
4:10pm: LOUIE followed up with patient's family. Patient's niece Mavis was at bedside and was receptive to meeting with this SW. SW checked in to see how Mavis was feeling and coping with patient's prognosis and comfort care. Mavis expressed her thoughts and feelings, and SW provided supportive counseling. SW also provide some education on grief and loss, and preparing to say goodbye. Mavis discussed patient's fear of dying, which patient had expressed to Mavis in the past, and therefore SW helped Mavis identify ways to say good bye to the patient that would provide comfort to the patient. Mavis identified calming music as something that may bring comfort to the patient, and Mavis stated she will try to provide that for the patient. Mavis also identified talking to the patient as a way to ease her fears, stating that she can say things like "everything will be ok, we will be fine here" and "it is ok to go". SW supported Mavis's ideas. SW also offered nondenominational support, but Mavis declined. /mortuary arrangements were discussed, which Mavis stated she had already made arrangements for. LOUIE then informed CHIVO Romano and charge account authorizer Carol of above. Odette stated she will follow-up with Mavis regarding the post-mortem paperwork and information.
--- NOTE | 2018-12-30 20:00 | NUR ---
received pt. resting in bed, non alert on comfort measures only. Under hospice care. Family at beside
--- NOTE | 2018-12-30 21:00 | NUR ---
Pt. . Assessed by Charge nurse Amaris. Notified Dr, hospice, electrical supervisor, next of kin. Valuables in closet to be picked up by next of kin niece.
== END 2018-12-30 21:00 | disposition expired | DRG 180 ==
LOC: HOSPICE3 19:20
PROVIDERS: ADMIT Nurse Practitioner Acute Care; ATTEND Nurse Practitioner Acute Care
DX: C34.11 Malignant neoplasm of upper lobe, right bronchus or lung (principal); J96.91 Respiratory failure, unspecified with hypoxia; I50.23 Acute on chronic systolic (congestive) heart failure; E43 Unspecified severe protein-calorie malnutrition; J18.9 Pneumonia, unspecified organism; C79.9 Secondary malignant neoplasm of unspecified site; D68.59 Other primary thrombophilia; D61.818 Other pancytopenia; N17.9 Acute kidney failure, unspecified; G93.40 Encephalopathy, unspecified; K92.2 Gastrointestinal hemorrhage, unspecified; Z68.1 Body mass index [BMI] 19.9 or less, adult; Z51.5 Encounter for palliative care; Z66 Do not resuscitate; Z74.09 Other reduced mobility; I25.5 Ischemic cardiomyopathy; R62.7 Adult failure to thrive; K72.90 Hepatic failure, unspecified without coma; I11.0 Hypertensive heart disease with heart failure; I25.2 Old myocardial infarction; Z95.5 Presence of coronary angioplasty implant and graft; I25.10 Atherosclerotic heart disease of native coronary artery without angina pectoris; K82.8 Other specified diseases of gallbladder; F32.9 Major depressive disorder, single episode, unspecified
CPT/HCPCS: G0378; J2060; J2270